=== PATIENT | male | born 1960 | race Caucasian/White ===

== ENCOUNTER → 2017-05-24 | Outpatient (CLI) | payer BC | END | disposition home or self-care (01) | LOC: SPEC 17:10 | DX: L97.524 Non-pressure chronic ulcer of other part of left foot with necrosis of bone (principal) | CPT/HCPCS: 87071; 87075; 87205 ==

== ENCOUNTER → 2017-05-28 | Outpatient (CLI) | payer BC ==
[2017-05-28] MEDS: cefTRIAXone IM 1 GM VIAL IM (10:13)
[2017-05-28] MEDS: LIDOCAINE 1% PF 2 ML VIAL. INJ (10:14)
== END | disposition home or self-care (01) ==
LOC: OPS 09:27
DX: E11.69 Type 2 diabetes mellitus with other specified complication (principal); M86.8X7 Other osteomyelitis, ankle and foot
CPT/HCPCS: 96372; J0696